=== PATIENT | female | born 1955 | race Caucasian/White ===

== ENCOUNTER 2020-10-27 08:04 | Outpatient (CLI) | payer MEDICARE | END 2020-10-27 08:05 | disposition home or self-care (01) | LOC: BICCT 08:04 | PROVIDERS: ATTEND Physician Assistant Medical | DX: R10.12 Left upper quadrant pain (principal); K74.60 Unspecified cirrhosis of liver; R16.1 Splenomegaly, not elsewhere classified; K80.20 Calculus of gallbladder without cholecystitis without obstruction | CPT/HCPCS: 74160 ==

== ENCOUNTER 2021-05-19 10:37 | Inpatient (IN) | payer MEDICARE, OTHER ==
[2021-05-19] MEDS ORDERED: Morphine 4 MG/ML VIAL ONE (11:08)
[2021-05-19] MEDS ORDERED: Ondansetron PF 4 MG/2 ML Vial ONE (11:08)
[2021-05-19 12:17] LABS: #Eosinphils 0.1 thou/uL (0.0-0.7); #Lymphocytes 1.8 thou/uL (1.20-3.40); #Monocytes 0.7 thou/uL (0.11-0.59); #Neutrophils 8.3 thou/uL (1.40-6.50); %Basophils 0.2 % (0.0-1.0); %Eosinophils 0.9 % (0.0-10.0); %Lymphocytes 16.6 % (21.0-51.0); %Monocytes 6.2 % (0.0-10.0); %Neutrophils 76.1 % (42.0-75.0); Hemoglobin 14.9 g/dL (12.0-16.0); Mean Corpuscular HGB CONC 33.2 g/dL (32.0-36.0); Mean Corpuscular Hemoglobin 32.9 pg (27.0-31.0); Mean Corpuscular Volume 98.8 fL (78.0-98.0); Mean Platelet Volume 6.6 fL (7.4-10.4); Platelet Count 118 thou/uL (130-400); RBC Distribution Width 12.3 % (11.5-14.5); Red Blood Cell (RBC) Count 4.55 mill/uL (4.20-5.40); White Blood Cell (WBC) Count 10.9 thou/uL (4.8-10.8)
[2021-05-19] MEDS ORDERED: Ondansetron PF 4 MG/2 ML Vial IVP PRN (12:17)
[2021-05-19] MEDS ORDERED: hydrALAZINE 20 MG/ML VIAL SLOW IVP PRN (12:17)
[2021-05-19] MEDS ORDERED: Dextrose 5% in Water 1,000 ML IV PRN (12:17)
[2021-05-19] MEDS ORDERED: Dextrose 50% Abboject 50 ML SYRINGE SLOW IVP PRN (12:17)
[2021-05-19] MEDS ORDERED: traMADol HCl 50 MG TAB PO PRN ×2 (12:20)
[2021-05-19] MEDS ORDERED: hydrALAZINE 20 MG/ML VIAL ONE (12:21)
[2021-05-19 12:29] LABS: INR-International Normal Ratio 1.2; PTT 37.9 sec (22.9-36.1); Prothrombin Time 15.5 sec (12.0-14.7)
[2021-05-19 12:36] LABS: ALT (SGPT) 16 U/L (8-55); AST (SGOT) 23 U/L (5-34); Albumin 3.9 g/dL (3.4-4.8); Alkaline Phosphatase 94 U/L (40-110); Anion Gap 11 mmol/L (10-20); BUN (Urea Nitrogen) 8 mg/dL (9.8-20.1); Calc. Creatinine Clearance 0 mL/min (70-130); Calcium 9.3 mg/dL (7.8-10.44); Carbon Dioxide 27 mmol/L (23-31); Chloride 103 mmol/L (98-107); Globulin 3.2 g/dL (2.4-3.5); Glucose 88 mg/dL (80-115); Magnesium 1.8 mg/dL (1.6-2.6); Potassium 3.3 mmol/L (3.5-5.1); Protein, Total 7.1 g/dL (5.8-8.1); Sodium 138 mmol/L (136-145)
[2021-05-19 12:43] LABS: Phosphorus 2.6 mg/dL (2.3-4.7)
[2021-05-19] MEDS ORDERED: Acetaminophen 500 MG TAB PO SCH ×2 (13:15→18:00)
[2021-05-19] MEDS ORDERED: Potassium Phosphate 30 MMOL, Magnesium Sulfate 2 GM in Sodium Chloride 0.9% 250 ML 250 ML IVPB SCH (13:30)
[2021-05-19] MEDS ORDERED: Magnesium 2 GM/50 ML(in water) 2 GM in Premix Bag 1 BAG IVPB SCH (13:30)
[2021-05-19] MEDS ORDERED: D5 1/2 NS w/20 mEq KCL 1,000 ML IV SCH (13:45)
[2021-05-19] MEDS: Morphine 4 MG/ML VIAL SLOW IVP PRN ×2 (14:35→20:20)
[2021-05-19 15:23] VITALS: BMI 29.2
[2021-05-19] MEDS ORDERED: ceFAZolin 2 GM/Dextrose 50 ML 2 GM in Premix Bag 1 BAG IVPB SCH (15:45)
[2021-05-19 18:58] LABS: Bacteria/HPF None Seen HPF (None Seen); Bilirubin Negative (Negative); Blood, Urine Negative (Negative); Clarity Clear (Clear); Glucose, Urine (Dipstick) Normal (Negative); Ketone, Urine Negative (Negative); Leukocyte Negative Leu/uL (Negative); Nitrite Negative (Negative); Protein, Urine (Dipstick) Negative (Neg-Trace); RBC/HPF 0-3 HPF (0-3); Specific Gravity, Urine 1.011 (1.002-1.036); Squamous Epithelial 0-3 HPF (0-3); Urobilinogen Normal mg/dL (Less than 2); WBC/HPF 0-3 HPF (0-3)
[2021-05-19] MEDS: Famotidine 20 MG TAB PO SCH (20:15)
[2021-05-19] MEDS: Senokot S 8.6-50 MG TAB PO SCH (20:17)
[2021-05-19] MEDS: Acetaminophen 500 MG TAB PO SCH (23:29)
[2021-05-20] MEDS: Morphine 4 MG/ML VIAL SLOW IVP PRN ×3 (04:06→16:19)
[2021-05-20] MEDS: Acetaminophen 500 MG TAB PO SCH ×3 (05:08→18:07)
[2021-05-20 06:18] LABS: #Eosinphils 0.1 thou/uL (0.0-0.7); #Lymphocytes 2.6 thou/uL (1.20-3.40); #Monocytes 0.6 thou/uL (0.11-0.59); %Basophils 0.2 % (0.0-1.0); %Eosinophils 1.8 % (0.0-10.0); %Lymphocytes 30.7 % (21.0-51.0); %Monocytes 7.1 % (0.0-10.0); %Neutrophils 60.2 % (42.0-75.0); Hemoglobin 13.5 g/dL (12.0-16.0); Mean Corpuscular HGB CONC 33.5 g/dL (32.0-36.0); Mean Corpuscular Volume 98.7 fL (78.0-98.0); Mean Platelet Volume 6.3 fL (7.4-10.4); Platelet Count 103 thou/uL (130-400); RBC Distribution Width 12.4 % (11.5-14.5); Red Blood Cell (RBC) Count 4.07 mill/uL (4.20-5.40); White Blood Cell (WBC) Count 8.3 thou/uL (4.8-10.8)
[2021-05-20 06:34] LABS: Anion Gap 13 mmol/L (10-20); BUN (Urea Nitrogen) 5 mg/dL (9.8-20.1); Calc. Creatinine Clearance 116 mL/min (70-130); Calcium 8.3 mg/dL (7.8-10.44); Carbon Dioxide 25 mmol/L (23-31); Chloride 104 mmol/L (98-107); Glucose 118 mg/dL (80-115); Magnesium 2.1 mg/dL (1.6-2.6); Phosphorus 3.8 mg/dL (2.3-4.7); Potassium 3.9 mmol/L (3.5-5.1); Sodium 138 mmol/L (136-145)
[2021-05-20] MEDS ORDERED: Dexmedetomidine 200 MCG/2 ML VIAL ONE (07:05)
[2021-05-20] MEDS ORDERED: Fentanyl 100 MCG/2 ML VIAL ONE ×2 (07:05→09:23)
[2021-05-20] MEDS ORDERED: Ondansetron HCl/PF 4 MG/2 ML Vial IVP PRN (07:48)
[2021-05-20] MEDS ORDERED: Promethazine HCl 25 MG/ML VIAL IM PRN (07:48)
[2021-05-20] MEDS ORDERED: Promethazine HCl 25 MG/ML VIAL IVPB PRN (07:48)
[2021-05-20] MEDS ORDERED: ceFAZolin (BATCH) 2 GM/100 ML BAG ONE (07:54)
[2021-05-20] MEDS ORDERED: Ondansetron PF 4 MG/2 ML Vial ONE (08:10)
[2021-05-20] MEDS ORDERED: PROPOFOL 200 MG/20 ML VIAL ONE (08:10)
[2021-05-20] MEDS ORDERED: Dexamethasone 20 MG/5 ML VIAL ONE (08:10)
[2021-05-20] MEDS ORDERED: Metoclopramide HCl 10 MG/2 ML VIAL ONE (08:10)
[2021-05-20] MEDS ORDERED: ePHEDrine 50 MG/ML VIAL ONE (08:10)
[2021-05-20] MEDS ORDERED: PHENYLEPHRINE-NS 100 MCG/ML 10 ML SYRINGE ONE (08:10)
[2021-05-20] MEDS ORDERED: Lidocaine 1% PF 5 ML VIAL ONE (08:10)
[2021-05-20 08:13] LABS: SARS-CoV-2 NAA Rapid Test Not Detected (NotDetected)
[2021-05-20] MEDS: Senokot S 8.6-50 MG TAB PO SCH ×2 (09:02→21:05)
[2021-05-20] MEDS: Famotidine 20 MG TAB PO SCH ×2 (09:02→21:04)
[2021-05-20] MEDS: Polyethylene Glycol 3350 17 GM Packet PO SCH (09:02)
[2021-05-20] MEDS ORDERED: HYDROcodone/Acetaminophen 10/325 mg Tablet PO PRN ×4 (09:25→11:58)
[2021-05-20] MEDS ORDERED: TETANUS AND DIPHTHERIA TOX/PF 0.5 ML DISP.SYRIN IM SCH (09:30)
[2021-05-20] MEDS ORDERED: Communication Order-Pharmacy FS SCH (09:30)
[2021-05-20] MEDS ORDERED: [UNRECOGNIZED DRUG - REMARK] IVPB PRN (09:35)
[2021-05-20] MEDS ORDERED: Morphine 4 MG/ML VIAL SLOW IVP PRN (09:39)
[2021-05-20] MEDS ORDERED: traMADol HCl 50 MG TAB PO PRN (14:13)
[2021-05-20] MEDS: CEFAZOLIN 2 GM, Admixture Fee 1 EACH in Sodium Chloride 0.9% 100 ML IVPB SCH (16:43)
[2021-05-20] MEDS: Aspirin 81 mg Enteric Coated Tablet PO SCH (21:04)
[2021-05-20] MEDS: traMADol HCl 50 MG TAB PO PRN (21:05)
[2021-05-21] MEDS: Acetaminophen 500 MG TAB PO SCH ×4 (00:05→17:22)
[2021-05-21] MEDS: CEFAZOLIN 2 GM, Admixture Fee 1 EACH in Sodium Chloride 0.9% 100 ML IVPB SCH (00:05)
[2021-05-21] MEDS: traMADol HCl 50 MG TAB PO PRN ×3 (04:50→17:22)
[2021-05-21 06:40] LABS: #Basophils 0.1 thou/uL (0.0-0.2); #Lymphocytes 2.2 thou/uL (1.20-3.40); #Monocytes 0.7 thou/uL (0.11-0.59); #Neutrophils 9.1 thou/uL (1.40-6.50); %Basophils 0.5 % (0.0-1.0); %Eosinophils 0.2 % (0.0-10.0); %Lymphocytes 17.9 % (21.0-51.0); %Monocytes 5.7 % (0.0-10.0); %Neutrophils 75.8 % (42.0-75.0); Mean Corpuscular HGB CONC 34.1 g/dL (32.0-36.0); Mean Corpuscular Hemoglobin 33.5 pg (27.0-31.0); Mean Corpuscular Volume 98.1 fL (78.0-98.0); Mean Platelet Volume 6.6 fL (7.4-10.4); Platelet Count 113 thou/uL (130-400); RBC Distribution Width 12.1 % (11.5-14.5); Red Blood Cell (RBC) Count 3.88 mill/uL (4.20-5.40)
[2021-05-21 06:47] LABS: Anion Gap 10 mmol/L (10-20); BUN (Urea Nitrogen) 9 mg/dL (9.8-20.1); Calc. Creatinine Clearance 110 mL/min (70-130); Calcium 8.7 mg/dL (7.8-10.44); Carbon Dioxide 25 mmol/L (23-31); Chloride 102 mmol/L (98-107); Glucose 118 mg/dL (80-115); Phosphorus 3.3 mg/dL (2.3-4.7); Potassium 3.8 mmol/L (3.5-5.1); Sodium 133 mmol/L (136-145)
[2021-05-21] MEDS: Polyethylene Glycol 3350 17 GM Packet PO SCH (09:46)
[2021-05-21] MEDS: Senokot S 8.6-50 MG TAB PO SCH ×2 (09:46→20:42)
[2021-05-21] MEDS: Cyclobenzaprine 10 MG TAB PO PRN ×2 (09:46→20:41)
[2021-05-21] MEDS: Famotidine 20 MG TAB PO SCH ×2 (09:46→20:42)
[2021-05-21] MEDS: Aspirin 81 mg Enteric Coated Tablet PO SCH ×2 (09:47→20:41)
[2021-05-21] MEDS: Lisinopril 10 MG TAB PO SCH (09:47)
[2021-05-22] MEDS: Acetaminophen 500 MG TAB PO SCH ×3 (00:29→11:46)
[2021-05-22] MEDS: traMADol HCl 50 MG TAB PO PRN (00:30)
[2021-05-22 06:17] LABS: Anion Gap 12 mmol/L (10-20); BUN (Urea Nitrogen) 11 mg/dL (9.8-20.1); Calc. Creatinine Clearance 110 mL/min (70-130); Calcium 8.3 mg/dL (7.8-10.44); Carbon Dioxide 25 mmol/L (23-31); Chloride 105 mmol/L (98-107); Glucose 85 mg/dL (80-115); Magnesium 1.8 mg/dL (1.6-2.6); Phosphorus 2.9 mg/dL (2.3-4.7); Potassium 3.7 mmol/L (3.5-5.1); Sodium 138 mmol/L (136-145)
[2021-05-22] MEDS ORDERED: Magnesium 2 GM/50 ML(in water) 2 GM in Premix Bag 1 BAG IVPB SCH (08:00)
[2021-05-22] MEDS ORDERED: Potassium Phosphate 15 MMOL in Sodium Chloride 0.9% 250 ML 250 ML IVPB SCH (09:00)
[2021-05-22] MEDS: Aspirin 81 mg Enteric Coated Tablet PO SCH (09:15)
[2021-05-22] MEDS: Polyethylene Glycol 3350 17 GM Packet PO SCH (09:15)
[2021-05-22] MEDS: Lisinopril 10 MG TAB PO SCH (09:15)
[2021-05-22] MEDS: Famotidine 20 MG TAB PO SCH (09:15)
[2021-05-22] MEDS: Senokot S 8.6-50 MG TAB PO SCH (09:15)
[2021-05-22 16:05] VITALS: BP 157/89; TEMP 98.8
== END 2021-05-22 17:00 | disposition home health service (06) | DRG 482 ==
LOC: ERS 10:37 → SURG B 12:01
PROVIDERS: ADMIT Surgery; ATTEND Surgery
PROC: 0QS704Z Reposition Left Upper Femur with Internal Fixation Device, Open Approach (ICD-10-PCS; principal; 2021-05-20)
DX: S72.142A Displaced intertrochanteric fracture of left femur, initial encounter for closed fracture (principal); Z20.822 Contact with and (suspected) exposure to COVID-19; I10 Essential (primary) hypertension; W01.198A Fall on same level from slipping, tripping and stumbling with subsequent striking against other object, initial encounter; Y92.59 Other trade areas as the place of occurrence of the external cause; Z90.710 Acquired absence of both cervix and uterus
CPT/HCPCS: 36415; 71045; 72170; 76000; 80048; 80053; 81001; 83735; 84100; 85025; 85610; 85730; 93005; 96374; 96375; C1713; G0390; J0360; J0690; J1100; J2270; J2405; J2704; J2765; J3010; J3475; J3480; J3490; J7050; U0002